=== PATIENT | female | born 1980 | race Caucasian/White ===

== ENCOUNTER 2018-09-26 17:20 | Emergency (ER) | payer MEDICAID ==
[2018-09-26] MEDS: predniSONE 20 MG TAB PO (18:23)
[2018-09-26] MEDS: DIPHENHYDRAMINE 50 MG INJ IM (18:24)
== END 2018-09-26 19:00 | disposition home or self-care (01) ==
LOC: FTE 17:20
DX: T78.1XXA Other adverse food reactions, not elsewhere classified, initial encounter (principal)
CPT/HCPCS: 96372; 99284-25